=== PATIENT | female | born 1980 | race American Indian/Alaskan Native ===

== ENCOUNTER 2021-04-19 15:19 | Emergency (ER) | payer SELFPAY ==
[2021-04-19 15:30] VITALS: BP 147/69
--- NOTE | 2021-04-19 16:19 | Emergency Department Report ---
ED General Adult HPI - General Chief complaint: Earache Stated complaint: L EAR CLOGGED UP Time Seen by Provider: 04/19/21 15:47 Source: patient Mode of arrival: Ambulatory Limitations: No Limitations - History of Present Illness Initial comments: 41-year-old -[place] female patient presents with complaints of left ear fullness x2 weeks now with hearing loss starting yesterday. She denies any pain or trauma to her ear. No discharge from the ear, fever/chills/sweats, upper respiratory/cold symptoms, or headache per patient. -: Sudden Severity scale (0 -10): 0 - Related Data Previous Rx's Medication Instructions Recorded Last Taken Type Levocetirizine Dihydrochloride 5 mg PO QHS 14 Days #14 tablet 04/19/21 Unknown Rx [Xyzal] Allergies Allergy/AdvReac Type Severity Reaction Status Date / Time No Known Allergies Allergy Unverified 04/19/21 15:23 ED Review of Systems ROS: Stated complaint: L EAR CLOGGED UP Other details as noted in HPI Constitutional: denies: chills, fever ENT: denies: ear pain, throat pain Respiratory: denies: cough Neurological: denies: headache ED Past Medical Hx - Medications Home Medications: Home Medications Medication Instructions Recorded Confirmed Last Taken Type Levocetirizine Dihydrochloride 5 mg PO QHS 14 Days #14 tablet 04/19/21 Unknown Rx [Xyzal] ED Physical Exam - General Limitations: No Limitations General appearance: alert, in no apparent distress, obese - Head Head exam: Present: atraumatic, normocephalic - ENT ENT exam: Present: other (No sinus tenderness to palpation noted) - Expanded ENT Exam Expanded TM/Canal exam: Effusion: Left TM (Clear fluid with a yellowish tint noted behind the tympanic membrane; no tenderness of the canal is noted; tympanic membrane is intact and not erythematous and nonbulging; no obvious mass noted on the tympanic membrane) Throat exam: Positive: normal inspection - Respiratory Respiratory exam: Absent: respiratory distress - Cardiovascular Cardiovascular Exam: Present: regular rate ED Course Vital Signs 04/19/21 15:25 Temperature 98.5 F Pulse Rate 75 Respiratory 18 Rate Blood Pressure 147/69 [Right] O2 Sat by Pulse 100 Oximetry Critical care attestation.: If time is entered above; I have spent that time in minutes in the direct care of this critically ill patient, excluding procedure time. ED Disposition Clinical Impression: Acute effusion of left ear Disposition: HOME / SELF CARE / HOMELESS Is pt being admited?: No Condition: Stable Instructions: Otitis Media With Effusion, Pediatric Prescriptions: Levocetirizine Dihydrochloride [Xyzal] 5 mg PO QHS 14 Days #14 tablet Referrals: CHRISTINA ABEBE MD [Staff Physician] - as needed Forms: Work/School Release Form(ED)
== END 2021-04-19 16:45 | disposition home or self-care (01) ==
LOC: ED 15:19
DX: H93.8X2 Other specified disorders of left ear (principal)
CPT/HCPCS: 99282